=== PATIENT | male | born 1955 | race Caucasian/White ===

== ENCOUNTER 2024-05-28 19:50 | Outpatient (OUT) | payer OTHER, SELFPAY | END 2024-05-28 19:51 | disposition home or self-care (01) | LOC: SLEEP 20:00 | PROVIDERS: PCP Psychiatry & Neurology Neurology; Visit Provider Psychiatry & Neurology Neurology | DX: G47.33 Obstructive sleep apnea (adult) (pediatric) (principal) | CPT/HCPCS: 95810 ==

== ENCOUNTER 2024-07-07 19:49 | Outpatient (OUT) | payer OTHER, SELFPAY ==
--- OUTSIDE RECORDS SUMMARY | 2024-07-07 19:51 | XMS_ITS | CCD ---
Author Organization [facility] Care Team Providers Care Sales Representative Wire Rope Name Role Phone FERNANDO THOMPSON Unavailable Unavailable FERNANDO THOMPSON Unavailable Unavailable FERNANDO THOMPSON Unavailable Unavailable HANSEL CAN Unavailable Unavailable Luzmaria Murray Unavailable YURIY Haider Emergency Provider NON STAFF Primary Care Provider UnavailDO John Singleton Emergency Provider [phone] MD Fernando Thompson Primary Care Provider [phone] MD Hansel Villegas Attending Provider [phone] Fernando Thompson Primary Care Unavailable John Farley Admitting Unavailable John Farley Attending Unavailable Hansel Villegas Admitting Unavailable Hansel Villegas Attending Unavailable Fernando Thompson Primary Care Unavailable FERNANDO THOMPSON Attending Unavailable FERNANDO THOMPSON Attending Unavailable HANSEL VILLEGAS Attending Unavailable HANSEL VILLEGAS Referring Unavailable FERNANDO THOMPSON Attending Unavailable DUSTY DUMONT Attending Unavailable DUSTY DUMONT Referring Unavailable DUSTY DUMONT Referring Unavailable DUSTY DUMONT Attending Unavailable Fernando Thompson MD Primary Care Provider Allergies Allergy Classification Reported Allergen(s) Allergy Type Date of Onset Reaction(s) Facility (3 sources) Honey bee venom Propensity to adverse reactions 3 [facility] Medications Current Medications Medication Drug Class(es) Dates Sig (Normalized) Sig (Original) [id number] 200 actuat albuterol 0.09 mg/actuat metered dose inhaler (1 source) beta2-Adrenergic Agonist Start: 12-23-2022 take 2 puff(s) by inhalation four times daily as needed Albuterol Sulfate HFA 108 (90 Base) MCG/ACT 2 puffs Inhalation 4 times a day prn Dec, Active aspirin 81 mg delayed release oral tablet (6 sources) Platelet Aggregation Inhibitor, Nonsteroidal Anti-inflammatory Drug Start: 03-20-2024 take 1 tablet by mouth once daily Aspirin Active 81 MG PO Daily March 20, 2024 12:00am FreeTextSi tablet Orally Once a day; Note: Source Status: Taking; Provider: Terri Dutta ( ) atorvastatin 40 mg oral tablet (3 sources) HMG-CoA Reductase Inhibitor Start: 01-14-2024 End: 07-12-2024 take 1 tablet by mouth once daily atorvastatin (Lipitor) 40 MG tablet Indications: Mixed dyslipidemia (CMS/HCC) Take 1 tablet (40 mg) by mouth Daily 90 tablet 1 01/14/2024 07/12/2024 Active ciprofloxacin 3 mg/ml ophthalmic solution (1 source) Quinolone Antimicrobial Start: 12-23-2022 take 1 drop(s) into the eye(s) every four hours Ciloxan 0.3 % 1 drop each eye every 4 hrs for 5 day(s) Dec, Active hydroCHLOROthiazide 25 mg / losartan potassium 100 mg oral tablet (6 sources) Thiazide Diuretic, Angiotensin 2 Receptor Andrey Start: 01-14-2024 End: 07-12-2024 take 1 tablet by mouth once daily losartan-hydroCH LOROthiazide (Hyzaar) 100-25 MG tablet Indications: Benign essential hypertension (CMS/HCC) Take 1 tablet by mouth Daily 90 tablet 1 01/14/2024 07/12/2024 Active take 1 tablet by rey th every twenty-four hours Losartan Potassium-HCTZ 100-25 MG 1 tabl et Orally Once a day Active Losartan (1 source) Angiotensin 2 Receptor Andrey Losartan Potassium Active 24 hr metoprolol succinate 200 mg extended release oral tablet (7 sources) beta-Adrenergic Andrey Start: End: take 1 tablet by mouth once daily metoprolol succinate XL (Toprol-XL) 200 MG 24 hr tablet Indications: Benign essential hypertension (CMS/HCC) Take 1 tablet (200 mg) by mouth Daily 90 tablet 1 01/14/2024 07/12/2024 Active take 1 capsule by mouth once lew ly Metoprolol Succinate 200 MG 1 capsule Orally Once a day Active Metoprolol Succi paulie Active 24 hr NIFEdipine 60 mg extended release oral tablet (7 sources) Dihydropyridine Calcium Channel Andrey Start: 03-20-2024 take 1 tablet by mouth once daily Nifedipine Active 60 MG PO Daily March 20, 2024 12:00am FreeTextSi tablet on an empty stomach Orally Once a day; Note: Source Status: Taking; Provider: Terri Dutta ( ) Start: 01-14-2024 End: 07-12-2024 take 1 tablet by mouth every twenty-four hours before mealtime NIFEdipine CC (Adalat CC) 60 MG 24 hr tablet Indications: Benign essential hypertension (CMS/HCC) Take 1 tablet (60 mg) by mouth in the morning. Take before meals. 90 tablet 1 01/14/2024 07/12/2024 Active take 1 tablet by rey th every twenty-four hours NIFEdipine ER 60 MG 1 tablet on an empty stomach Orally Once a day Active NIFEdipine Activ e predniSONE 20 mg oral tablet (2 sources) Start: 06-09-2023 take 1 tablet by mouth every twelve hours predniSONE 20 MG 1 tablet Orally bid for 5 day(s) May, Active Start: 12-23-2022 take 1 tablet by rey th every twelve hours predniSONE 20 MG 1 tablet Orally 2 times a day for 5 day(s) Dec, Active sildenafil 20 mg oral tablet (3 sources) Phosphodiesterase 5 Inhibitor Start: 09-27-2023 sildenafil (Revatio) 20 MG tablet Indications: Erectile dysfunction due to arterial insufficiency Take 1-5 tablets daily as needed. 90 tablet 1 09/27/2023 Active Completed/Discontinued Medications Medication Drug Class(es) Dates Sig (Normalized) Sig (Original) naproxen 500 mg oral tablet (3 sources) Nonsteroidal Anti-inflammatory Drug Start: 01-31-2023 End: 03-20-2024 take 500 mg by mouth twice daily Naproxen Discontinued 500 MG PO Twice daily January 31, 2023 12:00am March 20, 2024 7:19am tiZANidine 4 mg oral tablet (3 sources) Central alpha-2 Adrenergic Agonist Start: 01-31-2023 End: 03-20-2024 take 1 tablet by mouth three times daily Tizanidine (Zanaflex) 4 mg tablet Discontinued 4 MG PO Three times daily January 31, 2023 12:00am March 20, 2024 7:19am Problems Active Problems Problem Classification Problem Date Documented Date Episodic/Chronic Chronic kidney disease (3 sources) Chronic kidney disease stage 2; Translations: [Chronic kidney disease, stage 2 (mild)] Onset: 06-27-2023 06-27-2023 Chronic Chronic obstructive pulmonary disease and bronchiectasis (3 sources) Simple chronic bronchitis; Translations: [Simple chronic bronchitis] Onset: 06-27-2023 06-27-2023 Chronic Diabetes mellitus with complications (3 sources) Renal disorder due to type 2 diabetes mellitus; Translations: [Type 2 diabetes mellitus with other diabetic kidney complication] Onset: 06-27-2023 06-27-2023 Chronic Disorders of lipid metabolism (5 sources) Hyperlipidemia; Translations: [Hyperlipidemia NOS] Onset: 01-26-2024 01-26-2024 Chronic Epilepsy; convulsions (3 sources) Seizure; Translations: [Unspecified convulsions] Onset: 03-20-2024 03-20-2024 Episodic Essential hypertension (5 sources) Hypertensive disorder; Translations: [Hypertension, unspecified] Onset: 06-27-2023 06-27-2023 Chronic Hypertension with complications and secondary hypertension (3 sources) Hypertensive renal disease; Translations: [Hypertensive chronic kidney disease with stage 1 through stage 4 chronic kidney disease, or unspecified chronic kidney disease] Onset: 06-27-2023 06-27-2023 Chronic Inflammation; infection of eye (except that caused by tuberculosis or sexually transmitteddisease) (1 source) Unspecified conjunctivitis Episodic Other and ill-defined cerebrovascular disease (1 source) Cerebrovascular disease, unspecified; Translations: [CEREBROVASCULAR DISEASE UNSPECIFIED] Onset: 04-06-2017 Chronic Other and ill-defined cerebrovascular disease (3 sources) Cerebrovascular disease; Translations: [Cerebrovascular disease, unspecified] Onset: 06-27-2023 06-27-2023 Chronic Other male genital disorders (3 sources) Erectile dysfunction co-occurrent and due to arterial insufficiency; Translations: [Erectile dysfunction due to arterial insufficiency] Onset: 06-27-2023 06-27-2023 Chronic Other nutritional; endocrine; and metabolic disorders (3 sources) Body mass index 30+ - obesity; Translations: [Body mass index (BMI) 38.0-38.9, adult] Onset: 06-27-2023 06-27-2023 Chronic Other nutritional; endocrine; and metabolic disorders (3 sources) Obesity caused by energy imbalance; Translations: [Morbid (severe) obesity due to excess calories] Onset: 06-27-2023 06-27-2023 Chronic Other upper respiratory infections (1 source) Chronic maxillary sinusitis; Translations: [CHRONIC MAXILLARY SINUSITIS] Onset: 04-06-2017 Chronic Other upper respiratory infections (1 source) Acute upper respiratory infection, unspecified Episodic Residual codes; unclassified (2 sources) Obstructive sleep apnea syndrome; Translations: [Obstructive sleep apnea (adult) (pediatric)] 06-26-2024 Chronic Residual codes; unclassified (1 source) Unspecified symptoms and signs involving cognitive functions and awareness; Translations: [Unspecified symptoms and signs involving cognitive functions and awareness] Onset: 04-17-2024 Episodic Residual codes; unclassified (2 sources) Lack of awareness; Translations: [Unspecified symptoms and signs involving cognitive functions and awareness] 06-26-2024 Episodic Spondylosis; intervertebral disc disorders; other back problems (3 sources) Degeneration of lumbar intervertebral disc; Translations: [Degenerative disc disease, lumbar] Onset: 06-27-2023 06-27-2023 Chronic Sprains and strains (3 sources) Low back strain; Translations: [Strain of muscle, fascia and tendon of lower back, initial encounter] 01-31-2023 Episodic Substance-related disorders (3 sources) Cigarette smoker ; Translations: [Nicotine dependence, cigarettes, uncomplicated] Onset: 06-27-2023 06-27-2023 Chronic Past or Other Problems Problem Classification Problem Date Documented Date Episodic/Chronic Allergic reactions (3 sources) History of anaphylaxis; Translations: [Other insect allergy status] Onset: 06-27-2023 06-27-2023 Episodic Genitourinary symptoms and ill-defined conditions (3 sources) Microalbuminuria; Translations: [Proteinuria, unspecified] Onset: 06-27-2023 06-27-2023 Episodic Other aftercare (3 sources) Polypharmacy ; Translations: [Other shelter (current) drug therapy] Onset: 06-27-2023 06-27-2023 Episodic Other connective tissue disease (1 source) Other symptoms and signs involving the nervous system; Translations: [OTHER SYMPTOMS SIGNS INVOLVING NS] Onset: 04-06-2017 Episodic Other nervous system disorders (5 sources) Ataxia, unspecified; Translations: [Other lack of coordination] Onset: 03-22-2017 Episodic Other non-epithelial cancer of skin (3 sources) History of squamous cell carcinoma of skin; Translations: [Personal history of other malignant neoplasm of skin] Onset: 06-27-2023 06-27-2023 Episodic Residual codes; unclassified (3 sources) Noncompliance with dietary regimen; Translations: [Noncompliance of patient with dietary regimen] Onset: 06-27-2023 06-27-2023 Episodic Unclassified (1 source) Contact with and (suspected) exposure to covid-19 Z20.822 Viral infection (1 source) COVID-19 Results Test Name Value Interpretation Reference Range Facility MR head/brain wo conon 04-17 MR head/brain wo con [facility] [place] [address] MRI Report Signed Patient: Jolie Pedroza MR#: [id number] 98 : 1955 Acct:[id number] Age/Sex: 68 / M ADM Date: 04/17/24 Loc: [facility] Room: Type: [facility] Attending Dr: Hansel Villegas MD Copies to: Hansel Villegas MD Ordering Provider: Hansel Villegas MD Date of Service: 04/17/24 MR/MR head/brain wo con: R41.9 MR head/brain wo con 04/17/2024 8:54 AM SIGN AND SYMPTOMS: Seizure, unsteady gait PROTOCOL: Multiplanar multisequence MR images of the brain were obtained without IV contrast COMPARISON: 03/20/2024. FINDINGS: Extra axial spaces: There is mild age-related cortical atrophy. Hemorrhage: None. Ventricular system: Within normal limits. Basal cisterns: Within normal limits and not effaced. Cerebral parenchyma: Periventricular and subcortical white matter T2 and T2 FLAIR hyperintense foci are noted consistent with mild chronic microvascular ischemic change. Midline shift: None.. Cerebellum: Within normal limits. Brainstem: Within normal limits. OTHER: Calvarium: Normal marrow signal. Vascular system: Satisfactory flow voids within the anterior and posterior circulation. Visualized Paranasal sinuses: Mucosal thickening is noted in the right maxillary sinus and within the ethmoid air cells. Visualized Orbits: Within normal limits. Visualized upper cervical spine: Within normal limits. Sella and skull base: Within normal limits. There is a sebaceous cyst in the left superficial temporal soft tissues measuring 12 x 19 x 15 mm in greatest dimension. MR/MR head/brain wo con IMPRESSION: No acute intracranial pathology. No structural epileptogenic focus. Chronic age-related neurodegenerative changes are redemonstrated. Impression dictated by: Keon Mathis M.D.04/17/2024 3:17 PM Dictation Location: [place] [address] Transcribed By: DEMOND 04/17/24 1517 Dictated By: Keon Mathis II, MD 04/17/24 1418 Signed By: 04/17/24 1517 Normal [facility] Activated partial thrombopla stin time (aPTT) in platelet poor plasma by coagulation aOrdered By: John Farley on 03-20-2024 aPTT Coag (PPP) [Time] 23.5 s Low 25.1-36.5 [facility] Comment on above: A hematocrit value g reater than 55% may lead to inaccurate results in coagulation testing. Patients having hematocrit values >55% require a special collection tube for coagulation studies. Please contact the laboratory at [phone] for redraw instructions. Alanine aminotransferase [En zymatic activity/volume] in Serum or PlasmaOrdered By: John Farley on 03-20-2024 ALT [Catalytic activity/Vol] 20 U/L Normal [facility] Comment on above: Performed By: #### P RL, CMP, PT, PTT, TSH3, CBC, CK, HS TROP ####[facility] [id number] [place] [id number] [facility] Albumin [Mass/volume] in Ser um or Plasma by Bromocresol green (BCG) dye binding methoOrdered By: John Farley on 03-20-2024 Albumin BCG dye [Mass/Vol] 3.8 g/dL 3.5-5.7 [facility] Alkaline phosphatase [Enzyma tic activity/volume] in Serum or PlasmaOrdered By: John Farley on 03-20-2024 ALP [Catalytic activity/Vol] 52 U/L Normal 34-104 [facility] Comment on above: Performed By: #### P RL, CMP, PT, PTT, TSH3, CBC, CK, HS TROP ####[facility] [id number] Amphetamine Screen Ql (U)Ord ered By: John Farley on 03-20-2024 Amphetamines Ql (U) Negative Negative [facility] Aspartate aminotransferase [ Enzymatic activity/volume] in Serum or PlasmaOrdered By: John Farley on 03-20-2024 AST [Catalytic activity/Vol] 26 U/L Normal 13-39 [facility] Comment on above: Performed By: #### P RL, CMP, PT, PTT, TSH3, CBC, CK, HS TROP ####[facility] Automated basophil %Ordered By: John Farley on 03-20-2024 Basophils/100 WBC (Bld) 1.2 % Normal . [facility] Comment on above: Performed By: #### P RL, CMP, PT, PTT, TSH3, CBC, CK, HS TROP #### [facility] [address] [place] [address] Automated basophil countOrde red By: John Farley on 03-20-2024 Basophils (Bld) [#/Vol] 0.1 10*3/uL Normal 0.0-0.2 [facility] Comment on above: Result Comment: PERF ORMED BY: [place] [address] PATHOLOGIST METAL BENCH PATTERNMAKER NOEL ORTIZ M.D. Performed By: #### P RL, CMP, PT, PTT, TSH3, CBC, CK, HS TROP #### [facility] [address] [place] [address] Automated blood monocyte cou ntOrdered By: John Farley on 03-20-2024 Monocytes (Bld) [#/Vol] 0.8 10*3/uL Normal 0.0-0.8 [facility] Comment on above: Performed By: #### P RL, CMP, PT, PTT, TSH3, CBC, CK, HS TROP #### [facility] [address] Automated eosinophil %Ordere d By: John Farley on 03-20-2024 Eosinophils/100 WBC (Bld) 6.6 % Normal . [facility] Comment on above: Performed By: #### P RL, CMP, PT, PTT, TSH3, CBC, CK, HS TROP #### [facility] [address] Automated eosinophil countOr dered By: John Farley on 03-20-2024 Eosinophils (Bld) [#/Vol] 0.5 10*3/uL High 0.0-0.45 [facility] Comment on above: Performed By: #### P RL, CMP, PT, PTT, TSH3, CBC, CK, HS TROP #### [address] Automated monocyte %Ordered By: John Farley on 03-20-2024 Monocytes/100 WBC (Bld) 9.2 % Normal . [facility] Comment on above: Performed By: #### P RL, CMP, PT, PTT, TSH3, CBC, CK, HS TROP #### [address] Automated neutrophil %Ordere d By: John Farley on 03-20-2024 Neutrophils/100 WBC (Bld) 64.2 % Normal . [facility] Comment on above: Performed By: #### P RL, CMP, PT, PTT, TSH3, CBC, CK, HS TROP #### [address] Bacteria [Presence] in Urine by AutomatedOrdered By: John Farley on 03-20-2024 Bacteria Auto Ql (U) None seen [HPF] None Seen [facility] Barbiturates [Presence] in U rine by Screen methodOrdered By: John Farley on 03-20-2024 Barbiturates Screen Ql (U) Negative Negative [facility] Benzodiazepines Screen Ql (U )Ordered By: John Farley on 03-20-2024 Benzodiazepines Ql (U) Negative Negative [facility] Benzoylecgonine [Presence] i n Urine by Screen methodOrdered By: John Farley on 03-20-2024 Benzoylecgonine Screen Ql (U) Negative Negative [facility] Bilirubin Test strip Ql (U)O rdered By: John Farley on 03-20-2024 Bilirubin Ql (U) Negative Negative [facility] Bilirubin.total [Mass/volume ] in Serum or PlasmaOrdered By: John Farley on 03-20-2024 Bilirubin [Mass/Vol] 0.4 mg/dL Normal 0.3-1.0 [facility] Comment on above: Performed By: #### P RL, CMP, PT, PTT, TSH3, CBC, CK, HS TROP ####[facility] [id number] head/brain wo conon 03-20 CT head/brain wo con [facility] Main [place] [address] [place] [address] CT Scan Report Signed Patient: Jolie Pedroza MR#: [id number] 98 : 1955 Acct:[id number] Age/Sex: 68 / M ADM Date: 03/20/24 Loc: ER Room: Type: [facility] ER Attending Dr: Copies to: John Farley DO Ordering Provider: John Farley DO Date of Service: 03/20/24 CT/CT head/brain wo con: altered mental status CT head/brain wo con 03/20/2024 6:55 AM SIGNS AND SYMPTOMS: Altered mental status, possible seizure, hypertension TECHNIQUE:Multi-detector CT axial slices of the brain were obtained without IV contrast. CT was performed with one or more of the following dose reduction techniques: Automated exposure control, adjustment of the mA and/or kV according to patient size, or use of iterative reconstruction technique. COMPARISON: None. FINDINGS: There is no shift of the midline structures, acute intracranial bleeding, mass effects, or evidence of acute ischemia. Periventricular and subcortical white matter hypoattenuation is noted. The ventricular system is normal in size. The brainstem and the cerebellum are unremarkable. Mucosal thickening is noted in the right maxillary sinus and within the ethmoid air cells. The visualized intraorbital contents and the infratemporal soft tissues show no acute abnormality. The osseous structures in the skull base and the calvarium show no abnormality. There is a 17 mm sebaceous cyst in the superficial temporal soft tissues on the left. CT/CT head/brain wo con IMPRESSION: No acute intracranial pathology. Mild chronic age-related neurodegenerative changes noted as above. Impression dictated by: Keon Mathis M.D.03/20/2024 7:44 AM Dictation Location: [place] [address] Transcribed By: DEMOND 03/20/24743 Dictated By: Keon Mathis II, MD 03/20/2442 Signed By: 03/20/24743 Normal [facility] Calcium [Mass/volume] in Ser um or PlasmaOrdered By: John Farley on 03-20-2024 Calcium [Mass/Vol] 9.2 mg/dL Normal 8.6-10.3 [facility] Comment on above: Performed By: #### P RL, CMP, PT, PTT, TSH3, CBC, CK, HS TROP ####[facility] [id number] [place] [id number] [facility] Cannabinoids [Presence] in U rine by Screen methodOrdered By: John Farley on 03-20-2024 Cannabinoids Screen Ql (U) Negative Negative [facility] Comment on above: These are unconfirme d results and should not be used for legal purposes. Drug Cut-Off Concentration: AMPH 1000 ng/mL RAKESH 200 ng/mL KAYLA 200 ng/mL COCM 300 ng/mL OP 300 ng/mL PCP 25 ng/mL THC 20 ng/mL Capillary blood glucose caden urement by glucometer (mass/volume)Ordered By: John Farley on 03-20-2024 Glucose [Mass/Vol] 120 mg/dL Normal [facility] Comment on above: Random Glucose Refer ence Range is dependent on time and content of last meal. Glucose of more than 200 mg/dL in a nonstressed, ambulatory subject supports the diagnosis of Diabetes Mellitus. Result Comment: [place] Glucose Reference Range is dependent on time and content of last meal. Glucose of more than 200 mg/dL in a nonstressed, ambulatory subject supports the diagnosis of Diabetes Mellitus. PERFORMED BY: [place] [address] PATHOLOGIST METAL BENCH PATTERNMAKER NOEL ORTIZ M.D. Performed By: #### G KYLIE #### Point of Care testing , Carbon dioxide, total [Moles /volume] in Serum or PlasmaOrdered By: John Farley on 03-20-2024 CO2 [Moles/Vol] 24.6 mmol/L Normal 21.0-31.0 [facility] Comment on above: Performed By: #### P RL, CMP, PT, PTT, TSH3, CBC, CK, HS TROP ####[place] [address] [place] Chloride [Moles/volume] in S eva or PlasmaOrdered By: John Farley on 03-20-2024 Chloride [Moles/Vol] 104 mmol/L Normal 98-107 [facility] Comment on above: Performed By: #### P RL, CMP, PT, PTT, TSH3, CBC, CK, HS TROP ####[address] Color of Urine by AutoOrdere d By: John Farley on 03-20-2024 Color (U) Light-yellow Normal Yellow [facility] Comment on above: Order Comment: Name Collection Type:: Clean-Voided Midstream Performed By: #### U RDS, ADDONUAPLUS #### [address] Complete Blood Count Auto Di ffon 03-20-2024 Mean Corpuscular HGB Conc 34.5 g/dL Normal 32.5-35.6 [facility] Comment on above: Performed By: #### P RL, CMP, PT, PTT, TSH3, CBC, CK, HS TROP #### [place] [address] [place] Monocytes/100 WBC (Bld) 20.81 % High 0.00-20.00 [facility] Comment on above: Result Comment: For adults in ED, MDW > 20.0 may be associated with a higher risk of sepsis during the first 12 hrs of hospital admission Performed By: #### P RL, CMP, PT, PTT, TSH3, CBC, CK, HS TROP #### [facility] [address] NRBC% 0.0 /100{WBC} Normal 0-0.5 [facility] Comment on above: Performed By: #### P RL, CMP, PT, PTT, TSH3, CBC, CK, HS TROP #### [facility] [address] Comprehensive Metabolic Pane aliyah 03-20-2024 Albumin [Mass/Vol] 3.8 g/dL Normal 3.5-5.7 [facility] Comment on above: Performed By: #### P RL, CMP, PT, PTT, TSH3, CBC, CK, HS TROP ####[facility] Creatinine Clr Calc Pharmacy 65.82 Normal [facility] Comment on above: Performed By: #### P RL, CMP, PT, PTT, TSH3, CBC, CK, HS TROP ####[facility] GFR/1.73 sq M.predicted MDRD (S/P/Bld) [Vol rate/Area] mL/min/{1.73_m2} Normal [facility] Comment on above: Performed By: #### P RL, CMP, PT, PTT, TSH3, CBC, CK, HS TROP ####[place] [id number] [address] Creatine kinase [Enzymatic a ctivity/volume] in Serum or PlasmaOrdered By: John Farley on 03-20-2024 CK [Catalytic activity/Vol] 257 U/L High 30-223 [facility] Comment on above: Performed By: #### P RL, CMP, PT, PTT, TSH3, CBC, CK, HS TROP ####[place] [id number] [address] Creatinine [Mass/volume] in Serum or PlasmaOrdered By: John Farley on 03-20-2024 Creatinine [Mass/Vol] 1.21 mg/dL Normal 0.70-1.30 [facility] Comment on above: Performed By: #### P RL, CMP, PT, PTT, TSH3, CBC, CK, HS TROP ####[facility] [id number] [place] [address] [place] Dipstick and Microscopicon 0 03-20-2024 Bacteria,Urine None Seen Normal None Seen [facility] Comment on above: Order Comment: Name Collection Type:: Clean-Voided Midstream Performed By: #### U RDS, ADDONUAPLUS #### [facility] [address] [place] [address] [place] Bilirubin,Urine Negative Normal Negative [facility] Comment on above: Order Comment: Name Collection Type:: Clean-Voided Midstream Performed By: #### U RDS, ADDONUAPLUS #### [facility] [address] [place] [address] [place] Glucose Ql (U) Normal Normal Normal [facility] Comment on above: Order Comment: Name Collection Type:: Clean-Voided Midstream Performed By: #### U RDS, ADDONUAPLUS #### [facility] [address] [place] [address] [place] Hyaline Casts,Urine 0-8 Normal 0-8 [facility] Comment on above: Order Comment: Name Collection Type:: Clean-Voided Midstream Performed By: #### U RDS, ADDONUAPLUS #### [facility] [address] [place] [address] [place] Mucus,Urine Rare Normal [facility] Comment on above: Order Comment: Name Collection Type:: Clean-Voided Midstream Result Comment: PERF ORMED BY: [place] [address] PATHOLOGIST METAL BENCH PATTERNMAKER NOEL ORTIZ M.D. Performed By: #### U RDS, ADDONUAPLUS #### [facility] [address] [place] [address] [place] Nitrite,Urine Negative Normal Negative The [facility] Comment on above: Order Comment: Name Collection Type:: Clean-Voided Midstream Performed By: #### U RDS, ADDONUAPLUS #### [address] Occult Blood,Urine 2+ High Negative The [facility] Comment on above: Order Comment: Name Collection Type:: Clean-Voided Midstream Result Comment: PERF ORMED BY: [place] [address] PATHOLOGIST METAL BENCH PATTERNMAKER NOEL ORTIZ M.D. Performed By: #### U RDS, ADDONUAPLUS #### [address] RBC,Urine 5-9 High 0-4 [facility] Comment on above: Order Comment: Name Collection Type:: Clean-Voided Midstream Performed By: #### U RDS, ADDONUAPLUS #### [address] Specificy [place],Urine 1.017 Normal 1.001-1.03 0 [facility] Comment on above: Order Comment: Name Collection Type:: Clean-Voided Midstream Performed By: #### U RDS, ADDONUAPLUS #### [address] Squamous Epithelial Cell,Urine 1-2 Normal 0-2 [facility] Comment on above: Order Comment: Name Collection Type:: Clean-Voided Midstream Performed By: #### U RDS, ADDONUAPLUS #### [place] [address] [place] Urobilinogen,Urine Normal Normal Normal [facility] Comment on above: Order Comment: Name Collection Type:: Clean-Voided Midstream Performed By: #### U RDS, ADDONUAPLUS #### [place] [address] [place] WBC,Urine 1-2 Normal 0-4 [facility] Comment on above: Order Comment: Name Collection Type:: Clean-Voided Midstream Performed By: #### U RDS, ADDONUAPLUS #### [place] [address] [place] Drug Screen,Urineon 03-20-20 Amphetamine Screen,Urine Negative Normal Negative [facility] Comment on above: Performed By: #### U RDS, ADDONUAPLUS #### [place] [address] [place] Barbiturate Screen,Urine Negative Normal Negative [facility] Comment on above: Performed By: #### U RDS, ADDONUAPLUS #### [place] [address] [place] Benzodiazepines Screen,Urine Negative Normal Negative [facility] Comment on above: Performed By: #### U RDS, ADDONUAPLUS #### [address] Cannabinoid Screen,Urine Negative Normal Negative [facility] Comment on above: Result Comment: Thes e are unconfirmed results and should not be used for legal purposes. Drug Cut-Off Concentration: AMPH 1000 ng/mL RAKESH 200 ng/mL KAYLA 200 ng/mL COCM 300 ng/mL OP 300 ng/mL PCP 25 ng/mL THC 20 ng/mL PERFORMED BY: [place] [address] PATHOLOGIST METAL BENCH PATTERNMAKER NOEL ORTIZ M.D. Performed By: #### U RDS, ADDONUAPLUS #### [place] [address] [place] Cocaine Screen,Urine Negative Normal Negative [facility] Comment on above: Performed By: #### U RDS, ADDONUAPLUS #### [place] [address] [place] Opiate Screen,Urine Negative Normal Negative [facility] Comment on above: Performed By: #### U RDS, ADDONUAPLUS #### [place] [address] [place] Phencyclidine Screen,Urine Negative Normal Negative [facility] Comment on above: Performed By: #### U RDS, ADDONUAPLUS #### [place] [address] [place] ECG 12 lead ECGon 03-20-2024 ECG 12 lead ECG [facility] Main [place] [address] [place] [address] Electrocardiograph Report Signed Patient: Jolie Pedroza MR#: [id number] 98 : 1955 Acct:[id number] Age/Sex: 68 / M ADM Date: 03/20/24 Loc: ER Room: Type: [facility] ER Attending Dr: Ordering Provider: John Farley DO Date of Service: 03/20/24 ECG/ECG 12 lead ECG: Seizure Copies to: Test Reason : Blood Pressure : 127/069 mmHG Vent. Rate : 077 BPM Atrial Rate : 077 BPM P-R Int : 176 ms QRS Dur : 094 ms QT Int : 394 ms P-R-T Axes : 036 032 037 degrees QTc Int : 445 ms Normal sinus rhythm Incomplete right bundle branch block Confirmed by John FARLEY DO ([id number]) on 03/20/2024 10:32:14 AM Referred By: Electronically Signed By:John FARLEY DO Transcribed By: MUS Signed By John Farley DO 0 03/20/24 1032 Normal [facility] Epithelial cells.squamous [# /area] in Urine sediment by Automated countOrdered By: John Farley on 03-20-2024 Epithelial cells.squamous Auto (Urine sed) [#/Area] 1-2 [HPF] 0-2 [facility] Erythrocyte distribution wid th [Ratio] by Automated countOrdered By: John Farley on 03-20-2024 Erythrocyte distribution width (RBC) [Ratio] 14.2 % Normal 12.0-14.8 [facility] Comment on above: Performed By: #### P RL, CMP, PT, PTT, TSH3, CBC, CK, HS TROP #### [facility] [address] [place] [address] Erythrocytes [#/area] in Uri ne sediment by Automated countOrdered By: John Farley on 03-20-2024 RBC Auto (Urine sed) [#/Area] 5-9 [HPF] High 0-4 [facility] Erythrocytes [#/volume] in B lood by Automated countOrdered By: John Farley on 03-20-2024 RBC (Bld) [#/Vol] 4.44 10*6/uL Normal 3.90-5.60 [facility] Comment on above: Performed By: #### P RL, CMP, PT, PTT, TSH3, CBC, CK, HS TROP #### [facility] [address] [place] [address] [place] Glucose [Mass/volume] in Ser um or PlasmaOrdered By: John Farley on 03-20-2024 Glucose [Mass/Vol] 111 mg/dL High 70-100 [facility] Comment on above: ADA recommended refe rence rangeRandom Glucose Reference Range is dependent on time and content of last meal. Glucose of more than 200 mg/dL in a nonstressed, ambulatory subject supports the diagnosis of Diabetes Mellitus. Result Comment: [place] om Glucose Reference Range is dependent on time and content of last meal. Glucose of more than 200 mg/dL in a nonstressed, ambulatory subject supports the diagnosis of Diabetes Mellitus. ADA recommended reference range Performed By: #### P RL, CMP, PT, PTT, TSH3, CBC, CK, HS TROP ####[facility] [id number] Glucose [Mass/volume] in Uri ne by Test stripOrdered By: John Farley on 03-20-2024 Glucose Test strip (U) [Mass/Vol] Normal mg/dL Normal [facility] Hematocrit [Volume Fraction] of Blood by Automated countOrdered By: John Farley on 03-20-2024 Hematocrit (Bld) [Volume fraction] 39.3 % Normal 38.8-50.0 [facility] Comment on above: Performed By: #### P RL, CMP, PT, PTT, TSH3, CBC, CK, HS TROP #### [facility] [address] Hemoglobin Test strip Ql (U) Ordered By: John Farley on 03-20-2024 Hemoglobin Ql (U) 2+ High Negative [facility] Hemoglobin [Mass/volume] in BloodOrdered By: John Farley on 03-20-2024 Hemoglobin (Bld) [Mass/Vol] 13.5 g/dL Normal 13.0-17.0 [facility] Comment on above: Performed By: #### P RL, CMP, PT, PTT, TSH3, CBC, CK, HS TROP #### [facility] [address] [place] [id number] [place] Hyaline casts [#/area] in Ur ine sediment by Automated countOrdered By: John Farley on 03-20-2024 Hyaline casts Auto (Urine sed) [#/Area] 0-8 [LPF] 0-8 [facility] INR in Platelet poor plasma by Coagulation assayOrdered By: John Farley on 03-20-2024 INR Coag (PPP) [Relative time] 1.0 {INR} Normal [facility] Comment on above: INR Therapeutic Rang e A) Pre- and Peroperative OAT started two weeks before surgery. NOT HIP SURGERY: 1.5 - 2.5 HIP SURGERY: 2 - 3B) Primary and secondary prevention of venous THROMBOSIS: 2 - 3C) Active venous thrombosis, pulmonary embolismand prevention of recurrent venous thrombosis: 2 - 3D) Prevention of arterial thromboembolismincluding patients with mechanical heart valves: 3 - 4.5 Result Comment: INR Therapeutic Range A) Pre- and Peroperative OAT started two weeks before surgery. NOT HIP SURGERY: 1.5 - 2.5 HIP SURGERY: 2 - 3 B) Primary and secondary prevention of venous THROMBOSIS: 2 - 3 C) Active venous thrombosis, pulmonary embolism and prevention of recurrent venous thrombosis: 2 - 3 D) Prevention of arterial thromboembolism including patients with mechanical heart valves: 3 - 4.5 Performed By: #### P RL, CMP, PT, PTT, TSH3, CBC, CK, HS TROP #### [place] [address] [place] Ketones [Presence] in Urine by Test stripOrdered By: John Farley on 03-20-2024 Ketones Ql (U) Negative Normal Negative [facility] Comment on above: Order Comment: Name Collection Type:: Clean-Voided Midstream Performed By: #### U RDS, ADDONUAPLUS #### [place] [address] [place] Leukocyte esterase [Presence ] in Urine by Test stripOrdered By: John Farley on 03-20-2024 Leukocyte esterase Test strip Ql (U) Negative Normal Negative [facility] Comment on above: Order Comment: Name Collection Type:: Clean-Voided Midstream Performed By: #### U RDS, ADDONUAPLUS #### [facility] [address] [place] [address] [place] Leukocytes [#/area] in Urine sediment by Automated countOrdered By: John Farley on 03-20-2024 WBC Auto (Urine sed) [#/Area] 1-2 [HPF] 0-4 [facility] Leukocytes [#/volume] correc edie for nucleated erythrocytes in Blood by Automated counOrdered By: John Farley on 03-20-2024 WBC corrected for nucl RBC Auto (Bld) [#/Vol] 8.2 10*3/uL 4.1-10.5 [facility] Leukocytes [#/volume] in Blo od by Automated countOrdered By: John Farley on 03-20-2024 WBC (Bld) [#/Vol] 8.2 10*3/uL Normal 4.1-10.5 [facility] Comment on above: Performed By: #### P RL, CMP, PT, PTT, TSH3, CBC, CK, HS TROP #### [facility] [address] [place] [address] Lymphocytes [#/volume] in Bl ood by Automated countOrdered By: John Farley on 03-20-2024 Lymphocytes (Bld) [#/Vol] 1.6 10*3/uL Normal 1.00-4.8 [facility] Comment on above: Performed By: #### P RL, CMP, PT, PTT, TSH3, CBC, CK, HS TROP #### [facility] [address] [place] [address] [place] Lymphocytes/100 leukocytes i n Blood by Automated countOrdered By: John Farley on 03-20-2024 Lymphocytes/100 WBC (Bld) 18.8 % Normal . [facility] Comment on above: Performed By: #### P RL, CMP, PT, PTT, TSH3, CBC, CK, HS TROP #### [place] [address] [place] MCH [Entitic mass] by Automa edie countOrdered By: John Farley on 03-20-2024 MCH (RBC) [Entitic mass] 30.5 pg Normal 27.5-35.2 [facility] Comment on above: Performed By: #### P RL, CMP, PT, PTT, TSH3, CBC, CK, HS TROP #### [facility] [address] MCHC Auto (RBC) [Mass/Vol]Or dered By: John Farley on 03-20-2024 MCHC (RBC) [Mass/Vol] 34.5 g/dL 32.5-35.6 [facility] MCV [Entitic volume] by Auto mated countOrdered By: John Farley on 03-20-2024 MCV (RBC) [Entitic vol] 88.4 fL Normal 83.5-101 [facility] Comment on above: Performed By: #### P RL, CMP, PT, PTT, TSH3, CBC, CK, HS TROP #### [facility] [address] Monocyte distribution width [Entitic volume] in Blood by AutomatedOrdered By: John Farley on 03-20-2024 Monocyte distribution width Auto (Bld) [Entitic vol] 20.81 % High 0.00-20.00 [facility] Comment on above: For adults in ED, MD W > 20.0 may be associated with a higher risk of sepsis during the first 12 hrs of hospital admission Mucus [Presence] in Urine by AutomatedOrdered By: John Farley on 03-20-2024 Mucus Auto Ql (U) Rare [LPF] [facility] Neutrophils [#/volume] in Bl ood by Automated countOrdered By: John Farley on 03-20-2024 Neutrophils (Bld) [#/Vol] 5.3 10*3/uL Normal 1.8-7.7 [facility] Comment on above: Performed By: #### P RL, CMP, PT, PTT, TSH3, CBC, CK, HS TROP #### [facility] [address] [place] [address] Nitrite Test strip Ql (U)Ord ered By: John Farley on 03-20-2024 Nitrite Ql (U) Negative Negative [facility] No Panel InformationOrdered By: John Farley on 03-20-2024 Estimated GFR (CKD-EPI) > 60.0 mL/Min [facility] Creatinine Clearance (Chem 65.82 [facility] Nucleated erythrocytes [Pres ence] in Blood by Automated countOrdered By: John Farley on 03-20-2024 Nucleated RBC Auto Ql (Bld) 0.0 /100{WBC} 0-0.5 [facility] Opiates [Presence] in Urine by Screen methodOrdered By: John Farley on 03-20-2024 Opiates Screen Ql (U) Negative Negative [facility] Partial Thromboplastin Timeo n 03-20-2024 aPTT Coag (Bld) [Time] 23.5 s Low 25.1-36.5 Th e [facility] Comment on above: Result Comment: A he matocrit value greater than 55% may lead to inaccurate results in coagulation testing. Patients having hematocrit values >55% require a special collection tube for coagulation studies. Please contact the laboratory at [phone] for redraw instructions. PERFORMED BY: [address] [place] [address] PATHOLOGIST METAL BENCH PATTERNMAKER NOEL ORTIZ M.D. Performed By: #### P RL, CMP, PT, PTT, TSH3, CBC, CK, HS TROP #### [facility] [address] Phencyclidine Screen Ql (U)O rdered By: John Farley on 03-20-2024 Phencyclidine Ql (U) Negative Negative [facility] Platelet mean volume [Entiti c volume] in Blood by Automated countOrdered By: John Farley on 03-20-2024 Platelet mean volume (Bld) [Entitic vol] 8.7 fL Normal 6.6-10.1 [facility] Comment on above: Performed By: #### P RL, CMP, PT, PTT, TSH3, CBC, CK, HS TROP #### [facility] [address] [place] [address] [place] Platelets [#/volume] in Bloo d by Automated countOrdered By: John Farley on 03-20-2024 Platelets (Bld) [#/Vol] 252 10*3/uL Normal 150-450 [facility] Comment on above: Performed By: #### P RL, CMP, PT, PTT, TSH3, CBC, CK, HS TROP #### [facility] [address] [place] [id number] [place] Potassium [Moles/volume] in Serum or PlasmaOrdered By: John Farley on 03-20-2024 Potassium [Moles/Vol] 4.1 mmol/L Normal 3.5-5.1 [facility] Comment on above: Performed By: #### P RL, CMP, PT, PTT, TSH3, CBC, CK, HS TROP ####[facility] [id number] [place] [id number] [facility] Prolactinon 03-20-2024 Prolactin 56.55 ng/mL High 2.64-13.13 [facility] Comment on above: Result Comment: PERF ORMED BY: [facility] [address] [place] [address] PATHOLOGIST METAL BENCH PATTERNMAKER NOEL ORTIZ M.D. Performed By: #### P RL, CMP, PT, PTT, TSH3, CBC, CK, HS TROP ####[facility] [id number] [place] [id number] [facility] Prolactin [Mass/volume] in S eva or PlasmaOrdered By: John Farley on 03-20-2024 Prolactin [Mass/Vol] 56.55 ng/mL High 2.64-13.13 [facility] Protein [Mass/volume] in Ser um or PlasmaOrdered By: John Farley on 03-20-2024 Protein [Mass/Vol] 6.9 g/dL Normal 6.4-8.9 [facility] Comment on above: Performed By: #### P RL, CMP, PT, PTT, TSH3, CBC, CK, HS TROP ####[place] [address] [place] [id number] [facility] Protein [Mass/volume] in Uri ne by Test stripOrdered By: John Farley on 03-20-2024 Protein (U) [Mass/Vol] 20 mg/dL High Negative [facility] Comment on above: Order Comment: Name Collection Type:: Clean-Voided Midstream Performed By: #### U RDS, ADDONUAPLUS #### [address] Prothrombin time (PT)Ordered By: John Farley on 03-20-2024 PT Coag (PPP) [Time] 11.6 s Normal 9.0-12.9 [facility] Comment on above: A hematocrit value g reater than 55% may lead to inaccurate results in coagulation testing. Patients having hematocrit values >55% require a special collection tube for coagulation studies. Please contact the laboratory at [phone] for redraw instructions. Result Comment: A he matocrit value greater than 55% may lead to inaccurate results in coagulation testing. Patients having hematocrit values >55% require a special collection tube for coagulation studies. Please contact the laboratory at [phone] for redraw instructions. Performed By: #### P RL, CMP, PT, PTT, TSH3, CBC, CK, HS TROP #### [address] Serum globulin measurement b y calculation (mass/volume)Ordered By: John Farley on 03-20-2024 Globulin (S) [Mass/Vol] 3.1 g/dL [facility] Comment on above: Performed By: #### P RL, CMP, PT, PTT, TSH3, CBC, CK, HS TROP ####[address] Serum or plasma albumin/glob ulin mass ratioOrdered By: John Farley on 03-20-2024 Albumin/Globulin [Mass ratio] 1.2 {ratio} [facility] Comment on above: Performed By: #### P RL, CMP, PT, PTT, TSH3, CBC, CK, HS TROP ####[address] Serum or plasma anion gap de terminationOrdered By: John Farley on 03-20-2024 Anion gap [Moles/Vol] 12.5 mmol/L Normal 6.0-15.0 [facility] Comment on above: Performed By: #### P RL, CMP, PT, PTT, TSH3, CBC, CK, HS TROP ####[place] [address] [place] [address] [facility] Sodium [Moles/volume] in Ser um or PlasmaOrdered By: John Farley on 03-20-2024 Sodium [Moles/Vol] 137 mmol/L Normal 136-145 [facility] Comment on above: Performed By: #### P RL, CMP, PT, PTT, TSH3, CBC, CK, HS TROP ####[place] [id number] [facility] Specific gravity Test strip (U) [Rel density]Ordered By: John Farley on 03-20-2024 Specific gravity (U) [Rel density] 1.017 1.001-1.03 0 [facility] Thyrotropin [Units/volume] i n Serum or PlasmaOrdered By: John Farley on 03-20-2024 TSH Qn 1.54 m[IU]/L Normal 0.45-5.33 [facility] Comment on above: Performed By: #### P RL, CMP, PT, PTT, TSH3, CBC, CK, HS TROP ####[place] [id number] [facility] Troponin I High Sensitivityo n 03-20-2024 Troponin I High Sensitivity 13.9 pg/mL Normal 0.0-20.0 [facility] Comment on above: Result Comment: PERF ORMED BY: [facility] [address] [facility] [place] [id number] PATHOLOGIST METAL BENCH PATTERNMAKER NOEL ORTIZ M.D. Performed By: #### P RL, CMP, PT, PTT, TSH3, CBC, CK, HS TROP ####[place] [id number] [facility] Troponin I.cardiac [Mass/vol ume] in Serum or Plasma by Detection limit <= 0.01 ng/Ordered By: John Farley on 03-20-2024 Troponin I.cardiac DL <= 0.01 ng/mL [Mass/Vol] 13.9 pg/mL 0.0-20.0 [facility] Urea nitrogen [Mass/volume] in Serum or PlasmaOrdered By: John Farley on 03-20-2024 Urea nitrogen [Mass/Vol] 29 mg/dL High 7-25 [facility] Comment on above: Performed By: #### P RL, CMP, PT, PTT, TSH3, CBC, CK, HS TROP ####[facility] [id number] Urine appearanceOrdered By: John Farley on 03-20-2024 Appearance (U) Clear Normal Clear [facility] Comment on above: Order Comment: Name Collection Type:: Clean-Voided Midstream Performed By: #### U RDS, ADDONUAPLUS #### [facility] [address] Urobilinogen Test strip (U) [Mass/Vol]Ordered By: John Farley on 03-20-2024 Urobilinogen (U) [Mass/Vol] Normal mg/dL Normal [facility] XR chest 2V*on 03-20-2024 XR chest 2V* [facility] Main [place] [address] [place] [address] XRay Report Signed Patient: Jolie Pedroza MR#: [id number] 98 : 1955 Acct:[id number] Age/Sex: 68 / M ADM Date: 03/20/24 Loc: ER Room: Type: [facility] ER Attending Dr: Copies to: John Farley DO Ordering Provider: John Farley DO Date of Service: 03/20/24 XR/XR chest 2V*: Seizure Chest 2 views CLINICAL HISTORY: Seizure. COMPARISON: None FINDINGS: Heart appears normal in size. Lungs are clear. No free air. XR/XR chest 2V* IMPRESSION: NO ACUTE CARDIOPULMONARY ABNORMALITY. Impression dictated by: Barak Matson Jr., D.O.03/20/2024 9:12 AM Dictation Location: [place] [address] Transcribed By: DEMOND 03/20/24911 Dictated By: Barak Matson Jr, DO 03/20/24910 Signed By: 03/20/24911 Normal [facility] pH of Urine by Test stripOrd ered By: John Farley on 03-20-2024 pH (U) 5.5 [pH] Normal 5.0-9.0 [facility] Comment on above: Order Comment: Name Collection Type:: Clean-Voided Midstream Performed By: #### U RDS, ADDONUAPLUS #### [facility] [address] [place] [address] [facility] SARS-CoV-2 (COVID-19) RNA NA A+probe Ql (Resp)on 06-09-2023 SARS-CoV-2 (COVID-19) RNA WALTER+probe Ql (Unsp spec) Positive [employer] Other Comprehensive Metabolic Pane aliyah 01-27-2022 Albumin [Mass/Vol] 4.3 g/dL Normal 3.6-5.1 [facility] Surgical Technologist Comment on above: Performed By: #### C QAMAR, LIPD #### [facility] [address] [place], [place] [id number] Albumin/Globulin [Mass ratio] 1.4 {ratio} Normal 1.0-2.5 [facility] Specialist Comment on above: Performed By: #### C QAMAR, LIPD #### [facility] [address] [facility] [id number] ALP [Catalytic activity/Vol] 56 U/L Normal 40-129 [facility] Specialist Comment on above: Performed By: #### C QAMAR, LIPD #### [facility] [address] [place], [place] [id number] ALT [Catalytic activity/Vol] 22 U/L Normal 9-46 [facility] Specialist Comment on above: Result Comment: 08/24 Female reference range changed. Performed By: #### C MP, LIPD #### [facility] [address] [facility] [place] [id number] Anion gap [Moles/Vol] 16 mmol/L Normal 12-20 [facility] Specialist Comment on above: Result Comment: Effe ctive 09/29/2019 reference range changed. Performed By: #### C MP, LIPD #### [facility] [address] [facility] [place] [facility] [place] [id number] AST [Catalytic activity/Vol] 22 U/L Normal 10-40 [facility] Specialist Comment on above: Performed By: #### C QAMAR LIPD #### [facility] [address] [place], [place] [id number] Bilirubin [Mass/Vol] 0.36 mg/dL Normal 0.30-1.20 [facility] Comment on above: Performed By: #### C QAMAR LIPDang #### [facility] [address] [place], [place] [id number] BUN/CREA 19 Ratio Normal 6-22 [facility] Comment on above: Performed By: #### C QAMAR LIPD #### [facility] [address] [place], [place] [id number] Calcium [Mass/Vol] 9.4 mg/dL Normal 8.6-10.2 [facility] Comment on above: Performed By: #### C QAMAR LIPD #### [facility] [address] [place], [place] [id number] Chloride [Moles/Vol] 99 mmol/L Normal 98-107 [facility] Comment on above: Performed By: #### C QAMAR LIPDang #### [facility] [address] [place], [place] [id number] CO2 [Moles/Vol] 23 mmol/L Normal 20-31 [facility] Comment on above: Performed By: #### C QAMAR LIPDang #### [facility] [address] [place], [place] [id number] Creatinine [Mass/Vol] 0.9 mg/dL Normal 0.7-1.4 [facility] Comment on above: Performed By: #### C QAMAR LIPDang #### [facility] [address] [place], [place] [id number] eGFRAA 102 mL/min/1.73m2 Normal >[address] [facility] Comment on above: Performed By: #### C QAMAR LIPDang #### [facility] [address] [place], [place] [id number] eGFRNAA 84 mL/min/1.73m2 Normal >60 [facility] Comment on above: Performed By: #### C QAMAR LIPDang #### [facility] [address] [place], [place] [id number] Globulin (S) [Mass/Vol] 3.0 g/dL Normal 1.9-3.7 [facility] Surgical Technologist Comment on above: Performed By: #### C QAMAR LIPD #### [facility] [address] [place], [place] [id number] Glucose [Mass/Vol] 112 mg/dL High 65-99 [facility] Surgical Technologist Comment on above: Result Comment: For FASTING Glucose --- ADA reference ranges: Normal 65-99 mg/dl Prediabetes 100-125 Diabetes >/= 126 Performed By: #### C QAMAR, LIPD #### [facility] [address] [place], [place] [id number] Potassium [Moles/Vol] 4.7 mmol/L Normal 3.5-5.5 [facility] Comment on above: Performed By: #### C QAMAR, LIPD #### [facility] [address] [place], [place] [id number] Protein [Mass/Vol] 7.3 g/dL Normal 6.1-8.1 [facility] Surgical Technologist Comment on above: Performed By: #### C QAMAR, LIPD #### [facility] [address] [place], [place] [id number] Sodium [Moles/Vol] 133 mmol/L Low 135-146 [facility] Surgical Technologist Comment on above: Performed By: #### C QAMAR, LIPD #### [facility] [address] [place], [place] [id number] Urea nitrogen [Mass/Vol] 17 mg/dL Normal 7-25 [facility] Surgical Technologist Comment on above: Performed By: #### C QAMAR LIPD #### [facility] [address] [place], [place] [id number] Hemoglobin A1Con 01-27-2022 EAG 125.50 Normal [facility] Specialist Comment on above: Performed By: #### A 1C #### [facility] [address] [place], [place] [id number] HbA1c (Bld) [Mass fraction] 6.0 % Normal 4.0-6.0 [facility] Surgical Technologist Comment on above: Performed By: #### A 1C #### [facility] [address] [place], [place] [id number] Lipid Panelon 01-27-2022 Cholesterol [Mass/Vol] 199 mg/dL Normal 125-200 [facility] on above: Result Comment: Low risk < 200mg/dL Borderline risk 201-239 mg/dl High risk > or equal to 240 Performed By: #### C QAMAR, LIPD #### [facility] [address] [place], [place] [id number] Cholesterol in HDL [Mass/Vol] 48 mg/dL Normal >40 [facility] Specialist Comment on above: Result Comment: High Cardiovascular Risk HDL <40 mg/dL Low Cardiovascular Risk HDL > or equal to 60 mg/dl Performed By: #### C QAMAR, LIPD #### [facility] [address] [place], [place] [id number] Cholesterol in LDL [Mass/Vol] 138 mg/dL Normal [facility] Comment on above: Result Comment: LDL ATP III CLASSIFICATION LDL less than 100 mg/dl Optimal LDL 100-129 mg/dl Near or above optimal LDL 130-159 Borderline high LDL 160-189 High LDL greater than 189 mg/dl Very High Performed By: #### C QAMAR, LIPD #### [facility] [address] [place], [place] [id number] Cholesterol in VLDL [Mass/Vol] 13 mg/dL Normal [facility] Comment on above: Performed By: #### C QAMAR, LIPD #### [facility] [address] [place], [place] [id number] Cholesterol.total/Chol esterol in HDL [Mass ratio] 4 {ratio} Normal [facility] Comment on above: Performed By: #### C MP, LIPD #### [facility] [address] [place], [place] [id number] Triglyceride [Mass/Vol] 67 mg/dL Normal 30-150 [facility] Specialist Comment on above: Result Comment: TRIG ATPIII CLASSIFICATIONS TRIG less than 150 mg/dl Normal TRIG 150-199 mg/dl Borderline High TRIG 200-500 mg/dl High TRIG greather than 500 mg/dl Very High Performed By: #### C MP, LIPD #### [facility] [address] [place], [place] [id number] MRI BRAIN WO CONon 7 MRI BRAIN WO CON [address] [place] [address] Patient: JOLIE PEDROZA Exam Date: 03/22/2017DOB: 1955 Gender:M : DR FERNANDO THOMPSON . Admission #: [id number] : Order #: [id number] HERE TO VIEW EXAM RADIOLOGY REPORT PROCEDURE: MRI BRAIN WITHOUT CONTRAST COMPARISON: None. INDICATIONS: Acute lightheadedness mainly when standing. Ataxia R27.0, cerebrovascular disease unspecified I67.9, neurological signs R29. TECHNIQUE: A variety of imaging planes and parameters were utilized for visualization of suspected pathology. Images were performed without contrast. FINDINGS: CEREBRUM: Numerous small T2 hyperintensities within the deep white matter. No edema, hemorrhage, mass, acute infarction, or inappropriate atrophy. CEREBELLUM: No edema, hemorrhage, mass, acute infarction, or inappropriate atrophy. BRAINSTEM: No edema, hemorrhage, mass, acute infarction, or inappropriate atrophy. CSF SPACES: Ventricles, cisterns, and sulci are appropriate for age. No hydrocephalus, subarachnoid hemorrhage, or mass. SKULL: No mass or other significant visible lesion. SINUSES: Moderate mucosal thickening within the right maxillary sinus. No fluid level.ORBITS: Limited views are unremarkable. OTHER: Negative. CONCLUSION: 1. No appreciable acute abnormality.2. Nonspecific T2 hyperintensities within the deep white matter favoring chronic small vessel ischemic changes.3. Right maxillary chronic sinusitis. Dictated by: Hansel Can M.D. on 03/22/2017 at 10:43 Approved by: Hansel Can M.D. on 03/22/2017 at 11:54 Normal [facility] US CAROTID ART BILon 03-22- 017 Bilirubin (total) [address] [place] [address] Patient: JOLIE PEDROZA. Exam Date: 03/22/2017DOB: 1955 Gender:M : DR FERNANDO THOMPSON . Admission #: [id number] : Order #: [id number] HERE TO VIEW EXAM RADIOLOGY REPORT PROCEDURE: ULTRASOUND CAROTID ARTERIAL BILATERAL COMPARISON: None. INDICATIONS: Ataxia R27.0, cerebrovascular disease unspecified I67.9, neurological signs R29; hypertension, smoker, near syncope TECHNIQUE: Duplex Doppler ultrasound analysis of carotid and vertebral arteries. FINDINGS: RIGHT CAROTID: Mild plaque without visible stenosis. LEFT CAROTID: Moderate plaque without significant stenosis. 50% area reduction of mid ICA; 38% area reduction of the mid CCA.VERTEBRALS: Antegrade flow bilaterally. OTHER: None. RIGHT CAROTID ARTERY (PSV) LEFT CAROTID ARTERY (PSV) Subclavian: 108.81 cm/s Subclavian: 194.62 cm/s CCA: Proximal: 83.14 cm/s CCA: Proximal: 102.89 cm/s Mid: 87.04 cm/s Mid: 132.40 cm/s Distal: 65.35 cm/s Distal: 122.49 cm/s BULB: 57.48 cm/s BULB: 96.84 cm/s ICA: Proximal: 81.10 cm/s ICA: Proximal: 75.17 cm/s Mid: 73.22 cm/s Mid: 100.73 cm/s Distal: 77.16 cm/s Distal: 92.82 cm/s ECA: 151.08 cm/s ECA: 73.12 cm/s VERTEBRAL: 32.10 cm/s VERTEBRAL: 43.09 cm/s ICA/CCA ratio: 0.93 ICA/CCA ratio: 0.76 Spectral Doppler US Thresholds (Reference: Khoi EG, et al. Radiology 2000; 214:247-252) Stenosis (%) PSV (cm/sec) VICA/VCCA 0-49 <150 <2.5 50-69 150-225 2.5-4.0 >70 >225 >4.0 CONCLUSION: 1. 0-49% flow stenosis within the right and left carotid arteries.2. Moderate atherosclerotic plaque within the left carotid artery. Dictated by: Hansel Can M.D. on 03/22/2017 at 11:57 Approved by: Hansel Can M.D. on 03/22/2017 at 12:05 Normal [facility] Vital Signs Date Time Vital Sign Value Performing Clinician Facility 06-26-2024 11:13-0400 Body height 167.6 cm Dusty GenomeQueste PA Work Phone: [facility] 06-26-2024 11:13-0400 Body mass index (BMI) [Ratio] 36.64 kg/m2 Dusty Lowe PA Work Phone: [facility] 06-26-2024 11:13-0400 Body weight 102.97 kg Dusty Lowe PA Work Phone: [facility] 06-26-2024 11:13-0400 Diastolic blood pressure 78 mm[Hg] Dusty Lowe PA Work Phone: [facility] 06-26-2024 11:13-0400 Systolic blood pressure 142 mm[Hg] Dusty Lowe PA Work Phone: [facility] 03-20-2024 09:30-0400 Diastolic blood pressure 66 mm[Hg] DO John AboutMyStarister Work Phone: [facility] 03-20-2024 09:30-0400 Heart rate 67 /min DO John AboutMyStarister Work Phone: [facility] 03-20-2024 09:30-0400 Respiratory rate 18 /min DO John Keister Work Phone: [facility] 03-20-2024 09:30-0400 SaO2% (BldA) [Mass fraction] 98 % DO John Keister Work Phone: [facility] 03-20-2024 09:30-0400 Systolic blood pressure 146 mm[Hg] DO John Farley Work Phone: [facility] 03-20-2024 08:30-0400 Inhaled oxygen flow rate 2 L/min DO John Farley Work Phone: [facility] 03-20-2024 06:07-0400 Body height 167.64 cm DO John Farley Work Phone: [facility] 03-20-2024 06:07-0400 Body temperature 97.9 [degF] DO John Farley Work Phone: [facility] 03-20-2024 06:07-0400 Body weight 103.41 kg DO John Farley Work Phone: [facility] 06-09-2023 11:45-0400 Body height 167.64 cm Luzmaria Murray Other [employer] Other 06-09-2023 11:45-0400 Body mass index (BMI) [Ratio] 36.18 kg/m2 Luzmaria Murray Other [employer] Other 06-09-2023 11:45-0400 Body temperature 97.5 [degF] Luzmaria Murray Other [employer] Other 06-09-2023 11:45-0400 Body weight 101.7 kg Luzmaria Murray Other [employer] Other 06-09-2023 11:45-0400 Respiratory rate 18 /min Luzmaria Murray Other [employer] Other 06-09-2023 11:45-0400 SaO2% (BldA) [Mass fraction] 98 % Luzmaria Murray Other [employer] Other 01-31-2023 21:14-0400 Body height 167.64 cm [employer] Marylin Saffle Work Phone: [facility] 01-31-2023 21:14-0400 Body temperature 98.2 [degF] [employer] Marylin Saffle Work Phone: [facility] 01-31-2023 21:14-0400 Body weight 104.32 kg [employer] Marylin Saffle Work Phone: [facility] 01-31-2023 21:14-0400 Diastolic blood pressure 61 mm[Hg] [employer] Marylin Saffle Work Phone: [facility] 01-31-2023 21:14-0400 Heart rate 73 /min [employer] Marylin Saffle Work Phone: [facility] 01-31-2023 21:14-0400 Respiratory rate 20 /min [employer] Marylin Saffle Work Phone: [facility] 01-31-2023 21:14-0400 SaO2% (BldA) [Mass fraction] 97 % [employer] Marylin Saffle Work Phone: [facility] 01-31-2023 21:14-0400 Systolic blood pressure 116 mm[Hg] [employer] Marylin Saffle Work Phone: [facility] 12-23-2022 11:40-0400 Body height 167.64 cm Luzmaria Murray Other [employer] Other 12-23-2022 11:40-0400 Body mass index (BMI) [Ratio] 37.6 kg/m2 Luzmaria Murray Other [employer] Other 12-23-2022 11:40-0400 Body temperature 98 [degF] Luzmaria Murray Other [employer] Other 12-23-2022 11:40-0400 Body weight 105.69 kg Luzmaria Murray Other [employer] Other 12-23-2022 11:40-0400 Diastolic blood pressure 60 mm[Hg] Luzmaria Murray Other [employer] Other 12-23-2022 11:40-0400 Respiratory rate 18 /min Luzmaria Murray Other [employer] Other 12-23-2022 11:40-0400 SaO2% (BldA) [Mass fraction] 96 % Luzmaria Murray Other [employer] Other 12-23-2022 11:40-0400 Systolic blood pressure 117 mm[Hg] Luzmaria Murray Other [employer] Other Encounters Encounter Date Encounter Type Care Provider Facility Start: 06-26-2024 End: 06-26-2024 Bamboo flowsheet Dusty Lowe [facility] Start: 06-26-2024 End: 06-26-2024 [employer] Dusty Lowe PA Work Phone: [employer] [facility] Start: 06-26-2024 End: 06-26-2024 Office outpatient visit 25 minutes Dusty Lowe PA Work Phone: [facility] [employer] [facility] Comment on above: Alteration of awaren ess (Primary Dx); Obstructive sleep apnea Start: 06-26-2024 End: 06-26-2024 ambulatory DUSTY LOWE Not Available Start: 06-16-2024 End: 06-16-2024 ambulatory DUSTY LOWE Not Available Start: 05-05-2024 End: 05-05-2024 ambulatory DUSTY LOWE Not Available Start: 04-29-2024 End: 04-29-2024 ambulatory DUSTY LOWE Not Available Start: 04-22-2024 End: 04-22-2024 ambulatory FERNANDO THOMPSON Not Available Start: 04-17-2024 End: 04-17-2024 Patient encounter procedure DO John Farley Work Phone: [facility] [address] Work Phone: Start: 04-17-2024 End: 04-17-2024 ambulatory DO John Farley Work Phone: [facility] Work Phone: Start: 04-02-2024 End: 04-02-2024 ambulatory HANSEL BENEDICT Not Available Start: 03-25-2024 End: 03-25-2024 ambulatory HANSEL BENEDICT Not Available Start: 03-20-2024 End: 03-20-2024 Emergency department patient visit DO John Farley Work Phone: [facility] Work Phone: Start: 01-14-2024 End: 01-14-2024 ambulatory FERNANDO THOMPSON Not Available Start: 01-03-2024 End: 01-03-2024 ambulatory FERNANDO THOMPSON Not Available Start: 06-09-2023 End: 06-09-2023 ambulatory Luzmaria Murray Other [employer] Other Start: 06-09-2023 Office outpatient visit 15 minutes Luzmaria Murray [facility] Start: 01-31-2023 End: 01-31-2023 Emergency department patient visit [employer] Marylin Haider Work Phone: [facility] Work Phone: Start: 12-23-2022 End: 12-23-2022 ambulatory Luzmaria Murray Other [employer] Other Start: 12-23-2022 Office outpatient ne w 20 minutes Luzmariaeveline Murray [facility] Start: 03-22-2017 End: 03-23-2017 Ambulatory FERNANDO THOMPSON Facility:[facility]1 Procedures Date Procedure Procedure Detail Performing Clinician Start: 04-17-2024 MRI of head DO Jalyn Farley Work Phone: Start: 03-20-2024 CT of head without contrast DO John Farley Work Phone: Start: 03-20-2024 Plain chest X-ray DO Al exloretta Farley Work Phone: Start: 09-02-2014 Colonoscopy Dusty Pak Work Phone: Plan of Treatment Date Care Activity Detail Author Start: 01-08-2025 Urine screening for protein Diabetes: Urine Protein Screening [facility] Start: 09-02-2024 Screening for malign ant neoplasm of colon [facility] Start: 07-22-2024 End: 07-22-2024 Patient encounter procedure 07/22/2024 1:20 PM EDT Office Visit [facility] [place] [address] [place] [phone] Dusty Dumont PA [address] [place], [place] [id number] [facility] [place] [facility] Start: 07-10-2024 End: 07-10-2024 Patient encounter procedure 07/10/2024 9:30 AM EDT Office Visit [facility] [address] [facility] [address] [place] [address] Fernando Thompson MD [address] [place] [place] [address] [facility] Start: 06-26-2024 End: 06-26-2024 Patient encounter procedure 06/26/2024 11:20 AM EDT Office Visit [facility] [place] [address] [place] [phone] Dusty Dumont PA [address] [place], [place] [id number] Arrived [facility] [address] Comment on above: Arrived Start: 05-25-2024 Influenza vaccination Influenza Vacc ine (#1) [facility] Start: 04-09-2024 Hemoglobin A1c measurement Diabetes: Hemoglobin A1C [facility] Start: 01-31-2023 X-ray of lumbar spin e, two or three views XR lumbar spine 2-3V* [facility] Start: 01-31-2023 XR Lumbar spine 2 or 3 Views [facility] Start: 1965 Glaucoma screening Diabetes: R etinopathy Screening [facility] Start: 1961 Pneumococcal Vaccine : 65+ Years (1 of 2 - PCV) Pneumococcal Vaccine: 65+ Years (1 of 2 - PCV) [facility] Start: 1955 Screening for malign ant neoplasm of colon [facility] Patient Education [facility] Work Phone: Patient referral [facility] Work Phone: Immunizations Immunization Date Immunization Notes Care Provider [facility] 07-19-2022 influenza, injectabl e, quadrivalent, preservative free Dusty Lowe PA Work Phone: [facility] 07-19-2022 influenza virus vacc ine, unspecified formulation Dusty Lowe PA Work Phone: [facility] 07-13-2019 influenza, injectabl e, quadrivalent, preservative free Dusty Lowe PA Work Phone: [facility] 07-01-2018 influenza, injectabl e, quadrivalent, preservative free Dusty Lowe PA Work Phone: [facility] 08-14-2016 influenza, injectabl e, quadrivalent, preservative free Dusty Lowe PA Work Phone: [facility] Payers Date Payer Category Payer Medicare MEDICARE MEDICAR E PART B [id number] 2024-[place] [address] Medicare [id number] 2024 Medicare [id number] 2024 Self-pay [id number] 2022 Unknown [employer] HALLMAN [id number] 2022-Present [address] [address] [place] [address] [id number] 1959 Unknown [id number] 1955 Unknown [id number] 259 1955 Unknown [id number] 259 1955 Unknown [id number] 2.16.840.1.647623.3.579.2.1 259 1955 Unknown [id number] 2.16.840.1.110204.3.579.2.1 259 1955 Unknown [id number] 2.16.840.1.537844.3.579.2.1 259 1955 Unknown [id number] 2.16.840.1.922775.3.579.2.1 259 1955 Unknown [id number] 2.16.840.1.555278.3.579.2.1 259 1955 Unknown [id number] 2.16.840.1.839214.3.579.2.1 259 1955 Unknown [id number] 2.16.840.1.028973.3.579.2.1 259 Unknown [id number] [id number] Unknown [id number] [id number] 31 Unknown [id number] [id number] 31 Social History Date Type Detail Facility Start: 07-03-2023 End: 04-29-2024 Sex Assigned At [place] [employer] Other Start: 01-31-2023 End: 03-20-2024 Tobacco smoking status NHIS Smoker (finding) [facility] Start: 1955 Sex Assigned At Male F [facility] Start: 07-02-2023 Tobacco smoking stat us NHIS Smokes tobacco daily [facility] History of tobacco use Cigarette Smoker [facility] Start: 07-02-2023 Tobacco use and exposure Smokeless tobacco non-user [facility] Start: 04-29-2024 End: 06-26-2024 Alcoholic beverage intake Current drinker of alcohol (finding) [facility] Start: 07-03-2023 End: 04-29-2024 Alcoholic beverage intake [facility] Start: 07-02-2023 Tobacco Comment Not ready to quit [facility] Start: 07-02-2023 Alcohol Comment Caffeine intak e : coffee , soda [facility] Start: 1955 Sex assigned at Not on file [facility] Evaluation note 06-09-2023 Note Date & Type Note Facility 06-09-2023 Evaluation note Encounter Date Diagnosis Assessment Notes May, Contact with and (suspected) exposure to covid-19 (ICD-10 - Z20.822) May, COVID-19 (ICD-10 - U07.1) Discharge Instructions for COVID-19 (Suspected or Confirmed ) material was printed Drink plenty fluids, get plenty of rest. Take Tylenol or Motrin as needed for aches pains or fevers. You must quarantine for 5 days after the onset of your symptoms of COVID. Follow-up with your family physician if no improvement in 2 to 3 days [employer] Other Evaluation note 12-23-2022 Note Date & Type Note Facility 12-23-2022 Evaluation note Encounter Date Diagnosis Assessment Notes Dec, Conjunctivitis of both eyes, unspecified conjunctivitis type (ICD-10 - H10.9) Conjunctivitis home care material was printed Dec, Viral upper respiratory infection (ICD-10 - J06.9) [facility] Other Evaluation note Note Date & Type Note Facility Evaluation note No assessment information availa ble [facility] Work Phone: Evaluation note Note Date & Type Note Facility Evaluation note Diagnosis Alteration of awareness- Primary Obstructive sleep apnea Obstructive sleep apnea (adult) (pediatric) documented in this encounter [facility] History general Narrative - Reported Note Date & Type Note Facility History general Narrative - Reported Type Medical History hypertension Medical History hyperlipidemia Medical History chronic bronchitis Medical History nicotine dependence Medical History borderline elevated blood sugar levels Surgical History back surgery 2011 [facility] Other History general Narrative - Reported Note Date & Type Note Facility History general Narrative - Reported Type Medical History hypertension Medical History hyperlipidemia Medical History chronic bronchitis Medical History nicotine dependence Medical History borderline elevated blood sugar levels Surgical History back surgery 2011 Hospitalization History see above [facility] Other Hospital Discharge instructions Note Date & Type Note Facility Hospital Discharge instructions Additional Instructions Take Zanaflex if needed for muscle spasms You cannot work or drive when taking Zanaflex Naprosyn or Tylenol if needed for pain Avoid heavy lifting Ice for the next 24 hours and then rotate heat Please return here if you develop any loss of bowel bladder control, numbness, tingling, unilateral weakness, dizziness, chest pain, shortness of breath or any other concerns Follow-up with your doctor in the next 3 days [facility] Work Phone: Hospital Discharge instructions Note Date & Type Note Facility Hospital Discharge instructions Additional Instructions If your symptoms return/worsen or you develop any further concerns or symptoms please see your doctor or return to the emergency department immediately. [facility] Work Phone: Summary Purpose Family History Relationship Condition Age at Onset Recorded Date/T sonali brother Family history of mental disorder Unknown father Unknown Heart disease Unknown Malignant neoplasm Unknown family member Unknown mother Unknown sister Malignant neoplasm Unknown Advance Directives Advance Directive Response Recorded Date/ Time Advance Directives No December 03 022 3:08pm Chief Complaint and Reason for Visit Chief Complaint Back Pain Chief Complaint seizure Chief Complaint seizure r41.9 Additional Source Comments (unrecognized sect ion and content) No Status Records FoundNo Status Records FoundNo Status Records FoundNo Status Records Found INFORMATION SOURCE (unrecogn ized section and content) DATE CREATED AUTHOR 03/20/2018 [facility] [place] [facility] DATE CREATED AUTHOR AUTHOR'S ORGANIZ ATION 01/28/[address] [facility] dical Specialist DATE CREATED AUTHOR AUTHOR'S ORGANIZ ATION 04/19/2024 [facility] DATE CREATED AUTHOR AUTHOR'S ORGANIZ ATION 06/28/[address] [facility] dical Specialists EPIC REASON FOR VISIT (unrecogniz ed section and content) Reason Comments Alteration of Awareness Care Teams (unrecognized sec tion and content) Team Status: Active Member Role Status Dates NON STAFF Primary Care Provider Active Team Status: Inactive Member Role Status Dates Marylin Haider APRN Emergency Provider Active NON STAFF Primary Care Provider Active Team Status: Active Member Role Status Dates Fernando Thompson MD Primary Care Provider Active Team Status: Inactive Member Role Status Dates John Farley DO Emergency Provider Active Start: March 20, 2024 End: March 20, 2024 Fernando Thompson MD Primary Care Provider Active Start: March 20, 2024 End: March 20, 2024 Team Status: Inactive Member Role Status Dates Fernando Thompson MD Primary Care Provider Active Start: April 17, 2024 End: April 17, 2024 Hansel Villegas MD Attending Provider Active S tart: April 17, 2024 End: April 17, 2024 Sales Representative [employer] Relationship Specialty Start Date End Date Fernando Thompson MD [address] [place] [address] PCP - General Family Medicine 01/30/23 Sales Representative [employer] Relationship Specialty Start Date End Date Fernando Thompson MD [address] [place] [address] PCP - General Family Medicine 01/30/23 Goals (unrecognized section and content) Goals may be documented in a n alternate section FOR RECORDS PERTAINING TO PATIENTS WHO ARE OR HAVE BEEN ENROLLED IN A CHEMICAL DEPENDENCY/SUBSTANCEABUSE PROGRAM, SOME INFORMATION MAY BE OMITTED. This clinical summary was aggregated from multiple sources. Caution should be exercised in using it in the provision of clinical care. This summary normalizes information from multiple sources, and as a consequence, information in this document may materially change the coding, format and clinical context of patient data. In addition, data may be omitted in some cases. CLINICAL DECISIONS SHOULD BE BASED ON THE PRIMARY CLINICAL RECORDS. [employer] [facility]. provides no warranty or guarantee of the accuracy or completeness of information in this document.
== END 2024-07-07 19:50 | disposition home or self-care (01) ==
LOC: SLEEP 19:49
PROVIDERS: PCP Psychiatry & Neurology Neurology; Visit Provider Psychiatry & Neurology Neurology
DX: G47.33 Obstructive sleep apnea (adult) (pediatric) (principal)
CPT/HCPCS: 95811